=== PATIENT | male | born 1945 | race Caucasian/White ===

== ENCOUNTER → 2016-10-22 | Outpatient (CLI) | payer MEDICARE ==
[2016-10-22 11:52] LABS: ALANINE AMINOTRANSFERASE 39 U/L (21-72); ASPARTATE AMINO TRANSFERASE 37 U/L (17-59)
== END ==
LOC: OD 10:31
PROVIDERS: ATTEND Podiatrist Foot Surgery
DX: B35.1 Tinea unguium (principal)
CPT/HCPCS: 36415; 84450; 84460

== ENCOUNTER → 2018-01-13 | Outpatient (CLI) | payer MEDICARE ==
--- NOTE | 2018-01-13 16:02 | RADIOLOGY REPORT (SQ) ---
EXAM DESCRIPTION: MRI HEAD COMBO COMPLETED DATE/TIME: 01/13/2018 3:30 pm REASON FOR STUDY: HEARING LOSS (H91.8X2) H91.8X2 OTHER SPECIFIED HEARING LOSS, LEFT EAR COMPARISON: None. TECHNIQUE: Multiplanar imaging includes noncontrasted T1, T2, FLAIR, diffusion with ADC map and post gadolinium contrast T1 sequences. Images stored on PACS. Additional thin section axial and coronal pre contrast and postcontrast CT 1 weighted images through the internal auditory canals and inner ear structures. Axial thin-section T2 imaging through the int ernal auditory canals and inner ear structures. CONTRAST TYPE AND DOSE: 20 mL Multihance. RENAL FUNCTION: GFR > 60. LIMITATIONS: Metallic artifact from dental work over the facial soft tissues FINDINGS: ANATOMY: No developmental anomalies. Normal vascular flow voids. Pituitary fossa normal. CSF SPACES: Normal in size and contour. No hemorrhage. CEREBRUM: Sulci and gyri normal in size and contour. Normal white matter signal on FLAIR imaging. No evidence of hemorrhage, mass, or extraaxial fluid collection. No abnormal enhancement post contrast. POSTERIOR FOSSA: A soft tissue mass fills the left internal auditory canal and bulges into the left c erebellopontine angle, best shown on axial thin section T1 postcontrast series 13, image 8, and coron al series 14, image 7. Mass measures 17 mm transverse by 11 mm AP by 12 mm craniocaudad. This could either represent a acoustic schwannoma or meningioma. No extension of abnormal enhancement into the cochlear or vestibule. The right-sided internal auditory canal and inner ear structures are normal. Cerebellum armen brainstem unremarkable. 4th ventricle normal. DIFFUSION IMAGING: Negative for acute or subacute infarction. ORBITS: No masses. Globes normal. PARANASAL SINUSES: Mucous membrane thickening and enhancement in the ethmoid air cells bilaterally OTHER: No other significant finding. IMPRESSION: 17 x 11 x 12 mm mass in the left internal auditory canal bulging into the cerebelloponti ne angle. This could either represent an acoustic schwannoma or meningioma. EVIDENCE OF ACUTE STROKE: NO. TECHNICAL DOCUMENTATION: JOB ID: [id number] [employer]- All Rights Reserved Reading location - IP/workstation name: [email or web address]
== END ==
LOC: RAD 13:18
PROVIDERS: ATTEND Specialist
DX: H91.8X2 Other specified hearing loss, left ear (principal); H93.8X2 Other specified disorders of left ear
CPT/HCPCS: 70553; 82565

== ENCOUNTER 2019-10-10 07:58 | Day surgery (SDC) | payer MEDICARE ==
[2019-09-21 10:57] LABS: HEMATOCRIT 46.2 % (37.9-51.0); HEMOGLOBIN 15.8 g/dL (13.5-17.0); MEAN CORPUSCULAR HEMOGLOBIN 31.3 pg (27.0-33.4); MEAN CORPUSCULAR HGB CONC 34.1 g/dL (32.0-36.0); MEAN CORPUSCULAR VOLUME 92 fl (80-97); PLATELET COUNT 149 10^3/uL (150-450); RED BLOOD COUNT 5.04 10^6/uL (4.35-5.55); RED CELL DISTRIBUTION WIDTH 13.5 % (11.5-14.0); WHITE BLOOD COUNT 6.6 10^3/uL (4.0-10.5)
[2019-09-21 11:07] LABS: INTERNATIONAL RATION (INR) 0.98
[2019-09-21 11:08] LABS: PARTIAL THROMBOPLASTIN TIME 31.5 SEC (23.5-35.8)
--- NOTE | 2019-09-21 22:01 | EKG REPORT ---
SEVERITY:- OTHERWISE NORMAL ECG - SINUS RHYTHM BORDERLINE LEFT AXIS DEVIATION : Confirmed by: Shantel Alves 21-Sep-2019 22:01:04
[~2019-10-10 07:58] MED LIST: CEFAZOLIN 1 GM/D5W RTU 1 GM/50 ML RTUPB IV PRN; CEFAZOLIN SODIUM 1 GM in DEXTROSE 5%-WATER 50 ML IV PRN
[2019-10-10] MEDS ORDERED: SODIUM BICARBONATE 4.2% INJ (2.5 MEQ/5 ML) VIAL ONE (09:14)
[2019-10-10] MEDS ORDERED: POVIDONE-IODINE 5% OPH PREP SOLN 30 ML ONE (09:14)
[2019-10-10] MEDS ORDERED: LIDOCAINE 1%/EPINEPHRINE INJ 20 ML VIAL ONE (09:14)
[2019-10-10] MEDS ORDERED: PROPOFOL INJ 200 MG/20 ML VIAL IV ONE (09:16)
[2019-10-10] MEDS ORDERED: FENTANYL CITRATE INJ/PF 100 MCG/2 ML AMPUL ONE (09:16)
[2019-10-10] MEDS ORDERED: MIDAZOLAM 2 MG/2 ML INJ ONE (09:17)
[2019-10-10] MEDS ORDERED: ONDANSETRON HCL INJ/PF 4 MG/2 ML SDV ONE (09:17)
[2019-10-10] MEDS ORDERED: CEFAZOLIN 1 GM/D5W RTU 1 GM/50 ML RTUPB IV ONE (09:38)
[2019-10-10] MEDS ORDERED: PHENYLEPHRINE HCL INJ/PF 10 MG/1 ML SDV ONE (09:42)
--- NOTE | 2019-10-10 11:54 | Operative Report ---
Operative Report DATE OF SURGERY: 10/10/19 PREOPERATIVE DIAGNOSIS: Suspected basal cell carcinoma of the left posterior ear POSTOPERATIVE DIAGNOSIS: Basal cell carcinoma of the left posterior ear OPERATION: Excision of basal cell carcinoma from the left posterior ear with frozen section margin control and reconstruction with a split-thickness skin graft taken from the left thigh with a bolus tie-over dressing SURGEON: ZANA CHAVEZ ANESTHESIA: LMAC TISSUE REMOVED OR ALTERED: Basal cell carcinoma COMPLICATIONS: None ESTIMATED BLOOD LOSS: Minimal PROCEDURE: The patient was brought into the operating room. The patient was laid on the operating room table in a supine position. The patient was prepped and draped in a sterile and aseptic fashion. After a timeout we then went ahead and marked the area on the left posterior ear to be resected. The 12:00 margin was towards the apex of the ear. The 3:00 margin was towards the auricular sulcus. The 6:00 margin was towards the earlobe. The 9:00 margin was towards the tragus. Then went ahead and anesthetize the area with 1% lidocaine with epinephrine. Then went ahead and excise the area. Stitch was placed at 12:00 and it was sent for frozen section. Frozen section results came back that the deep and lateral margins were clear. We irrigated the wound with Betadine sterile water to lyse any remaining cancer cells. We then went ahead and decided that because of the size of the defect we will proceed with a skin graft. Decided to harvest the graft from the left anterior thigh using a Weck knife set at .0012. We then went ahead and harvest the split thickness graft. The donor site was dressed with Xeroform 4 x 4's and a light pressure dressing was applied . Graft was prepared. It was then sutured into place with 4-0 Prolene sutures leaving one end long. After all the sutures were placed we then went ahead and applied Xeroform. Then went ahead and created a bolus dressing and tied each suture 180 from each other. Then tied the sutures again to each other. Bacitracin was applied. 2 x 2's were applied and tincture benzoin and the dressing was taped into place. At the end of the case the patient was doing well and brought to the [facility] for recovery The approximate size of the lesion was 2.6 cm x 3.2 cm . This dictation was performed using [employer] naturally speaking. If there are any inconsistencies please contact the dictating surgeon. Subjective: No complaints Objective: Vital signs stable afebrile No bleeding Dressing intact Assessment and plan: Doing well. Elevate the operative site. Resume medications. Take antibiotics for 1 day Follow-up Full instructions were given to the patient and family and they understand Portions of this note may be dictated using [employer] voice recognition software. Occasional variations and spelling and vocabulary could be possible and are unintentional. Additionally, there is a chance that some errors may not be caught or corrected. Please notify the offer of any discrepancies noted or if any statements are unclear.
--- NOTE | 2019-10-10 11:55 | Discharge Summary ---
Discharge Summary (SDC) - Discharge Final Diagnosis: Basal cell carcinoma of the left posterior ear Date of Surgery: 10/10/19 Condition: Good Treatment or Instructions: Antibiotics for 1 day, then discontinue. Elevate operative area to decrease swelling. Do not strain, or lift heavy objects. Call for excessive bleeding, increased temperature of 101, uncontrolled pain, or excessive nausea or vomiting. You may reach Dr. Duvall through his office at [phone]. In the event of an emergency after hours, then contact Dr. Duvall through [facility]. Return to the office for a postop check on . The time will be scheduled by the nursing staff of [facility] prior to discharge. Please give the patient a copy of their labs and EKG so they can bring this to their PMD. Thank you Portions of this note may be dictated using [employer] voice recognition software. Occasional variations and spelling and vocabulary could be possible and are unintentional. Additionally, there is a chance that some errors may not be caught or corrected. Please notify the offer of any discrepancies noted or if any statements are unclear. Referrals: ROXI SOARES MD [Primary Care Provider] - Discharge Diet: As Tolerated Discharge Activity: No Lifting/Push/Pulling Report the Following to Your Physician Immediately: Unusual Bleeding - Keep head elevated. Keep ear dressing in place. Do not sleep on the ear. Leave leg dressing in place until you are seen at the office on .
[2019-10-10 18:15] VITALS: BP 126/63
== END 2019-10-10 13:35 | disposition home or self-care (01) ==
LOC: OROUT 07:58
PROVIDERS: ATTEND Plastic Surgery
DX: C44.219 Basal cell carcinoma of skin of left ear and external auricular canal (principal); Z79.899 Other long term (current) drug therapy; Z79.01 Long term (current) use of anticoagulants; F17.210 Nicotine dependence, cigarettes, uncomplicated
CPT/HCPCS: 93005; 36415; 85027; 85610; 85730; 88305 ×2; 88331 ×2; 93010; 00300; 11644; 15120; J2250; J0690 ×2; J3490 ×3; J2370; J2405; J7060; J2704; 300; J3010

== ENCOUNTER → 2020-04-01 | Outpatient (CLI) | payer MEDICARE ==
--- NOTE | 2020-04-01 12:05 | RADIOLOGY REPORT (SQ) ---
EXAM DESCRIPTION: MRI RT UPPER JOINT WITHOUT IMAGES COMPLETED DATE/TIME: 04/01/2020 10:22 am REASON FOR STUDY: PAIN IN R SHOULDER M25.511 PAIN IN RIGHT SHOULDER COMPARISON: None. TECHNIQUE: Right shoulder images acquired and stored on PACS. Multiplanar imaging to include fat sen sitive sequences such as T1, water sensitive sequences such as FST2/STIR, cartilage sensitive sequenc es such as FSPD/gradient-echo sequences. LIMITATIONS: Moderately limiting motion artifact on some sequences. FINDINGS: BONE MARROW AND CORTEX: No evidence of acute fracture or marrow replacement. JOINT OR BURSAL EFFUSION: No significant joint or bursal fluid. No suggestion of loose bodies. GLENO-HUMERAL ARTICULATION: Flattening of the humeral articular surface with prominent osteophytes. Completely denuded articular cartilage. Small subchondral cysts and areas of edema. Diffuse intra-a rticular ossific loose bodies. ACROMION AND AC JOINT: AC joint with mild degenerative overgrowth. Slight subacromial narrowing. ROTATOR CUFF AND INTERVAL: Mild loss of muscle bulk, suspected cuff atrophy. No full-thickness breec h. LABRUM AND BICEPS LABRAL COMPLEX: For assessment due to motion. Probably extensively torn. No ove rt biceps disruption. REMAINDER OF LABRUM AND IGHL : Extensive degenerative loss diffusely. PERIARTICULAR AND ADJACENT SOFT TISSUES: Small mass along the dorsal subcutaneous tissues overlying t he acromion. Roughly 2.8 cm. Hyperintense T1 with increased T2 signal as well. Possibly an area of fat necrosis or posttraumatic change. OTHER: No other significant finding. IMPRESSION: 1. Extensive glenohumeral disease, in stage arthropathy with complete loss of the articular surface c artilage and numerous loose bodies in the joint. 2. No full-thickness cuff tear. 3. Superior labral tear. Biceps tendon intact. 4. Soft tissue mass dorsal to the acromion. Differential as above. TECHNICAL DOCUMENTATION: JOB ID: [id number] [employer]- All Rights Reserved Reading location - IP/workstation name: [email or web address]
== END ==
LOC: RAD 09:49
PROVIDERS: ATTEND Physician Assistant
DX: M25.511 Pain in right shoulder (principal)